=== PATIENT | female | born 1960 | race Caucasian/White ===

== ENCOUNTER 2017-06-21 03:59 | Emergency (ER) | payer BC ==
[~2017-06-21] VITALS: Ht 165.1 cm; Wt 68.0 kg
[~2017-06-21 03:59] MED LIST: ALPR0.5T99 PO; NEXI40CA PO; WAL-10TA2 PO
[2017-06-21 04:02] VITALS: BP 133/76; PULSE 79; RESP 16; TEMP 96.7; O2SAT 98
[2017-06-21] MEDS ORDERED: ALPR.5 PO (04:18)
[2017-06-21] MEDS ORDERED: NEXI40CA PO (04:18)
[2017-06-21] MEDS ORDERED: SODIUM CHLORIDE 0.9% FLUSH 10 ML FLUSH IV FLUSH PRN (04:30)
[2017-06-21] MEDS ORDERED: MORPHINE SULFATE 4 MG/ML INJ IV PUSH ONE (04:30)
[2017-06-21] MEDS ORDERED: ONDANSETRON HCL 4 MG/2 ML VIAL IVP ONE (04:30)
[2017-06-21 04:38] VITALS: O2SAT 96
--- NOTE | 2017-06-21 04:42 | PD ---
HPI . Abdominal pain Chief Complaint: Abdominal Pain Time Seen by Provider: 04:24 Travel History International Travel<30 days: No Contact w/Intl Traveler<30days: No Traveled to known affect area: No History of Present Illness HPI This patient presents with the chief complaint of abdominal pain. She describes upper abdominal pain that radiates through to her back. Onset was yesterday. It is getting gradually worse. She describes it as sharp pain which she rates 9/10. She states that it is exacerbated by movement. She states that it is not exacerbated by food. She denies any associated symptoms such as fever, diarrhea. She denies any urinary tract symptoms. PFSH Past Medical History Anxiety: Yes Cancer: No Cardiovascular Problems: No Diminished Hearing: No GERD: Yes Genitourinary: No Headaches: Yes (occasional headaches) Implanted Vascular Access Dvce: No Musculoskeletal: No Neurologic: Yes Psychiatric: Yes Reproductive: No Respiratory: No Immunizations Current: Yes Tetanus Vaccination: Unknown Influenza Vaccination: Yes ?: Not Menopausal: No : 4 Para: 3 Miscarriage: 1 : 1 Tubal Ligation: Yes Past Surgical History Cholecystectomy: Yes (2010) Other Surgery: Yes (BREAST AUGMENTATION 2007) Social History Alcohol Use: Yes (3-4 X A WEEK) Tobacco Use: No (quit 13 years ago) Substance Use: No Allergies-Medications (Allergen,Severity, Reaction): Coded Allergies: acetaminophen (Unverified Adverse Reaction, Mild, NAUSEA, 06/21/17) hydrocodone (Unverified Adverse Reaction, Mild, NAUSEA, 06/21/17) Reported Meds & Prescriptions Reported Meds & Active Scripts Active Reported Nexium (Esomeprazole DR) 40 Mg Capdr 40 Mg PO DAILY Xanax (Alprazolam) 0.5 Mg Tab 0.5 Mg PO Q8H PRN Review of Systems Except as stated in HPI: all other systems reviewed are Neg General / Constitutional: No: Fever, Chills Gastrointestinal: Positive: Abdominal Pain, No: Nausea, Vomiting, Diarrhea, Constipation Genitourinary: No: Urgency, Frequency, Dysuria Physical Exam Narrative GENERAL: Awake and alert and in no acute distress. SKIN: warm/dry. Normal color. HEAD: Normocephalic. Atraumatic. EYES: Pupils equal and round. No scleral icterus. No injection or drainage. ENT: No nasal bleeding or discharge. Mucous membranes pink and moist. NECK: Trachea midline. Full range of motion without pain.. CARDIOVASCULAR: Regular rate and rhythm. Heart sounds normal. RESPIRATORY: No accessory muscle use. Clear to auscultation. Breath sounds equal bilaterally. GASTROINTESTINAL: Abdomen soft. Epigastric tenderness. Bowel sounds present. Nondistended. MUSCULOSKELETAL: No obvious deformities. NEUROLOGICAL: Awake and alert. No obvious cranial nerve deficits. Motor grossly within normal limits. Normal speech. PSYCHIATRIC: Appropriate mood and affect; insight and judgment normal. Data Data Last Documented VS Vital Signs Date Time Temp Pulse Resp B/P (MAP) Pulse Ox O2 Delivery O2 Flow Rate FiO2 06/21/17 04:38 96 Room Air 06/21/17 04:02 96.7 79 16 Orders Orders Complete Blood Count With Diff (06/21/17 04:24) Comprehensive Metabolic Panel (06/21/17 04:24) Lipase (06/21/17 04:24) Urinalysis - C+S If Indicated (06/21/17 04:24) Iv Access Insert/Monitor (06/21/17 04:24) Ecg Monitoring (06/21/17 04:24) Oximetry (06/21/17 04:24) Morphine Inj (Morphine Inj) (06/21/17 04:30) Ondansetron Inj (Zofran Inj) (06/21/17 04:30) Sodium Chloride 0.9% Flush (Ns Flush) (06/21/17 04:30) Ed Urine Pregnancytest Poc (06/21/17 04:24) Labs Laboratory Tests Test 06/21/17 04:30 White Blood Count 7.9 TH/MM3 Red Blood Count 4.43 MIL/MM3 Hemoglobin 13.6 GM/DL Hematocrit 40.6 % Mean Corpuscular Volume 91.5 FL Mean Corpuscular Hemoglobin 30.7 PG Mean Corpuscular Hemoglobin Concent 33.5 % Red Cell Distribution Width 12.9 % Platelet Count 336 TH/MM3 Mean Platelet Volume 7.3 FL Neutrophils (%) (Auto) 53.9 % Lymphocytes (%) (Auto) 31.5 % Monocytes (%) (Auto) 8.7 % Eosinophils (%) (Auto) 5.1 % Basophils (%) (Auto) 0.8 % Neutrophils # (Auto) 4.2 TH/MM3 Lymphocytes # (Auto) 2.5 TH/MM3 Monocytes # (Auto) 0.7 TH/MM3 Eosinophils # (Auto) 0.4 TH/MM3 Basophils # (Auto) 0.1 TH/MM3 CBC Comment DIFF FINAL Differential Comment Urine Color YELLOW Urine Turbidity CLEAR Urine pH 5.5 Urine Specific [place] 1.020 Urine Protein NEG mg/dL Urine Glucose (UA) NEG mg/dL Urine Ketones NEG mg/dL Urine Occult Blood SMALL Urine Nitrite NEG Urine Bilirubin NEG Urine Urobilinogen LESS THAN 2.0 MG/DL Urine Leukocyte Esterase MOD Urine RBC 3 /hpf Urine WBC 3 /hpf Urine Squamous Epithelial Cells 1 /hpf Urine Hyaline Casts 1 /lpf Urine Mucus FEW /lpf Microscopic Urinalysis Comment CULT NOT INDICATED Blood Urea Nitrogen 19 MG/DL Creatinine 0.87 MG/DL Random Glucose 99 MG/DL Total Protein 7.9 GM/DL Albumin 4.0 GM/DL Calcium Level 8.9 MG/DL Alkaline Phosphatase 65 U/L Aspartate Amino Transf (AST/SGOT) 20 U/L Alanine Aminotransferase (ALT/SGPT) 42 U/L Total Bilirubin 0.2 MG/DL Sodium Level 141 MEQ/L Potassium Level 4.0 MEQ/L Chloride Level 107 MEQ/L Carbon Dioxide Level 28.4 MEQ/L Anion Gap 6 MEQ/L Estimat Glomerular Filtration Rate 67 ML/MIN Lipase 154 U/L MDM Medical Decision Making Medical Screen Exam Complete: Yes Emergency Medical Condition: Yes Medical Record Reviewed: Yes (she has had previous episodes of pancreatitis. She has also been seen here before with diagnosis of gastritis.) Differential Diagnosis Differential diagnosis of abdominal pain includes but is not limited to gastritis, pancreatitis, hepatitis, gastroenteritis, gallbladder disease, constipation, urinary retention, UTI, peptic ulcer disease, diverticulitis or appendicitis Narrative Course Patient presents with epigastric abdominal pain radiating through to her back. An IV be started and she'll be given IV analgesia. Routine labs and ordered. Her abdominal exam is benign. Therefore, radiographic studies have not been ordered. CBC & BMP Diagram 06/21/17 04:30 Total Protein 7.9, Albumin 4.0, Calcium Level 8.9, Alkaline Phosphatase 65, Aspartate Amino Transf (AST/SGOT) 20, Alanine Aminotransferase (ALT/SGPT) 42, Total Bilirubin 0.2 UA is negative for infection. The history, exam, diagnostic testing, and current condition do not suggest any significant pathology to warrant further testing, continued ED treatment, admission, or surgical evaluation at this point. No EMC was found. The patient 's condition is stable and appropriate for discharge. Diagnosis Primary Impression: Abdominal pain Qualified Codes: R10.13 - Epigastric pain Patient Instructions: Abdominal Pain (ED), General Instructions Med/Other Pt SpecificInfo: Prescription(s) given Scripts Dicyclomine (Bentyl) 10 Mg Cap 20 MG PO QID for Bowel Management, #20 CAP 0 Refills Prov: Radha Saucedo MD 06/21/17 Condition: Stable Radha Saucedo MD Jun 21, 2017 04:42
[2017-06-21 04:50] LABS: AUTOMATED NEUTROPHIL # 4.2 TH/MM3 (1.8-7.7); BASOPHIL # 0.1 TH/MM3 (0-0.2); BASOPHIL % 0.8 % (0.0-2.0); EOSINOPHIL # 0.4 TH/MM3 (0-0.4); EOSINOPHIL % 5.1 % (0.0-4.0); HEMATOCRIT 40.6 % (35.0-46.0); HEMO FLAGS DIFF FINAL; LYMPH % 31.5 % (9.0-44.0); LYMPHOCYTE # 2.5 TH/MM3 (1.0-4.8); MEAN CELL VOLUME 91.5 FL (80.0-100.0); MEAN CORPUSCULAR HEMOGLOBIN 30.7 PG (27.0-34.0); MEAN CORPUSCULAR HGB CONC 33.5 % (32.0-36.0); MONO % 8.7 % (0.0-8.0); NEUT % 53.9 % (16.0-70.0); PLATELET COUNT 336 TH/MM3 (150-450); RED BLOOD COUNT 4.43 MIL/MM3 (4.00-5.30); RED CELL DISTRIBUTION WIDTH 12.9 % (11.6-17.2); WHITE BLOOD COUNT 7.9 TH/MM3 (4.0-11.0)
[2017-06-21 05:01] LABS: BLOOD, URINE SMALL (NEG); COMMENT (UR) CULT NOT INDICATED; CULTURE IF INDICATED CULT NOT INDICATED; GLUCOSE,URINE NEG (NEG); HYALINE CAST, URINE 1 /lpf (RARE); KETONE, URINE NEG (NEG); MUCUS URINE FEW /lpf (OCC); NITRITE,URINE NEG (NEG); PH, URINE 5.5 (5.0-8.5); SQUAMOUS EPITHELIAL CELL URINE 1 /hpf (0-5); URINE COLOR YELLOW (YELLW/STRAW)
[2017-06-21 05:24] LABS: ALT (GPT) 42 U/L (10-53); ANION GAP 6 MEQ/L (5-15); AST (GOT) 20 U/L (15-37); BICARBONATE 28.4 MEQ/L (21.0-32.0); BLOOD UREA NITROGEN 19 MG/DL (7-18); CHLORIDE 107 MEQ/L (98-107); GLOMERULAR FILTRATION RATE 67 ML/MIN (>89); SODIUM (NA) 141 MEQ/L (136-145)
[2017-06-21 05:27] LABS: ALKALINE PHOSPHATASE 65 U/L (45-117); TOTAL BILIRUBIN ADULT 0.2 MG/DL (0.2-1.0)
[2017-06-21] MEDS ORDERED: DICY10 PO (05:30)
== END 2017-06-21 05:48 | disposition home or self-care (01) ==
LOC: NEPE 03:59
DX: R10.13 Epigastric pain (principal); K21.9 Gastro-esophageal reflux disease without esophagitis; F41.9 Anxiety disorder, unspecified
CPT/HCPCS: 80053; 81001; 83690; 84703; 85025; 96374; 96375; 99285; J2270; J2405

== ENCOUNTER 2017-08-31 08:22 | Emergency (ER) | payer BC ==
[~2017-08-31] VITALS: Ht 160 cm; Wt 69.6 kg
[~2017-08-31 08:22] MED LIST changes: +ALPR.5 PO; -ALPR0.5T99 PO; +DICY10 PO; -WAL-10TA2 PO
[2017-08-31 08:24] VITALS: BP 119/73; PULSE 90; RESP 18; TEMP 98.7; O2SAT 95
--- NOTE | 2017-08-31 09:08 | PD ---
HPI Chief Complaint: Cold / Flu Symptoms Time Seen by Provider: 08:56 Travel History International Travel<30 days: No Contact w/Intl Traveler<30days: No Traveled to known affect area: No History of Present Illness HPI Patient comes emergency department complaining of cold and flulike symptoms began 5 days ago. Patient reports dry nonproductive cough, generalized body aches, sore throat with coughing, and fever of 101.4 yesterday. Patient reports taking [id number] cold and flu medication along with Tylenol last dose was yesterday for symptomatic relief. Patient complaining of burning sensation in her lungs is worse with coughing. Denies anything making it better. Denies any nausea, vomiting, abdominal pain, chest pain, shortness of breath, or loss or change in bowel or bladder. Patient reports she was around her mother who was sick. Denies any other known sick contacts. PFSH Past Medical History Anxiety: Yes Cancer: No Cardiovascular Problems: No Diminished Hearing: No GERD: Yes Genitourinary: No Headaches: Yes (occasional headaches) Implanted Vascular Access Dvce: No Musculoskeletal: No Neurologic: Yes Psychiatric: Yes Reproductive: No Respiratory: Yes (ASTHMA) Immunizations Current: Yes ?: Not Menopausal: No : 4 Para: 3 Miscarriage: 1 : 1 Tubal Ligation: Yes Past Surgical History Cholecystectomy: Yes (2010) Other Surgery: Yes (BREAST AUGMENTATION 2007) Social History Alcohol Use: Yes (3-4 X A WEEK) Tobacco Use: No (quit 13 years ago) Substance Use: No Allergies-Medications (Allergen,Severity, Reaction): Coded Allergies: acetaminophen (Unverified Adverse Reaction, Mild, NAUSEA, 08/31/17) hydrocodone (Unverified Adverse Reaction, Mild, NAUSEA, 08/31/17) Reported Meds & Prescriptions Reported Meds & Active Scripts Active Reported Nexium (Esomeprazole DR) 40 Mg Capdr 40 Mg PO DAILY Xanax (Alprazolam) 0.5 Mg Tab 0.5 Mg PO Q8H PRN Review of Systems Except as stated in HPI: all other systems reviewed are Neg Physical Exam Narrative GENERAL: Well-developed, overweight nourished, in no acute distress, and non- ill appearing. SKIN: Focused skin assessment warm and dry. HEAD: Atraumatic. Normocephalic. EYES: Pupils equal and round. EOMI. No scleral icterus. No injection or drainage. ENT: No nasal bleeding or discharge. Mucous membranes pink and moist. Tympanic membranes pearly smith bilaterally. Posterior oropharynx mildly erythematous without exudate. Uvula is midline. No tenderness to facial sinuses to palpation. NECK: Trachea midline. No cervical lymphadenopathy. Supple. No nuclear rigidity. CARDIOVASCULAR: Regular rate and rhythm. No murmur appreciated. RESPIRATORY: No accessory muscle use. No respiratory distress. Clear to auscultation. Breath sounds equal bilaterally. Patient speaking in full sentences without difficulty. MUSCULOSKELETAL: No obvious deformities. No clubbing. No cyanosis. No edema. Full range of motion. NEUROLOGICAL: Awake and alert. No obvious cranial nerve deficits. Motor grossly within normal limits. Normal speech. PSYCHIATRIC: Appropriate mood and affect; insight and judgment normal. Data Data Last Documented VS Vital Signs Date Time Temp Pulse Resp B/P (MAP) Pulse Ox O2 Delivery O2 Flow Rate FiO2 08/31/17 08:24 98.7 90 18 119/73 (88) 95 Orders Orders Influenzae A/B Antigen (08/31/17 09:03) Group A Rapid Strep Screen (08/31/17 09:03) Chest, Single Ap (08/31/17 ) Strep Culture (Group A) (08/31/17 09:10) Ed Discharge Order (08/31/17 09:41) [facility] Medical Decision Making Medical Screen Exam Complete: Yes Emergency Medical Condition: Yes Interpretation(s) Last Impressions Chest X-Ray 08/31/17 0000 Signed Impressions: Service Date/Time: Thursday, August 31, 2017 09:06 - CONCLUSION: The lungs are clear. Taurus Santamaria MD Differential Diagnosis Influenza, strep pharyngitis, viral pharyngitis, URI, bronchitis, viral syndrome Narrative Course Patient looks great. Patients symptom complex is consistent with Influenza, or flu-like illness. The patient is tolerating fluids and is well hydrated. There is no evidence to suggest secondary infection (pneumonia, sepsis/bacteremia, etc.) at this time. I discussed with the patient, diagnosis, and plan of care and to follow up with the patients primary physician. Flu prep is positive. I discussed with the patient initiating Tamiflu and the patient is outside the therapeutic window and the patient agreed with plan. The patient was instructed to return if the worsens in anyway, especially if not tolerating fluids, increased pain or swelling, difficulty swallowing or breathing, or as needed. The patient agreed with plan. Chest X-ray was performed and negative for consolidation, pneumonia. Patient in no obvious distress upon re-evaluation. All pertinent laboratory/ Radiology result(s) discussed with patient. Any questions/concerns in reference to patient diagnosis/condition discussed and clarified prior to patient's discharge. Reinforced sheer importance of close follow up with patient's primary physician or primary care clinic. Instructed patient to return to ED immediately, if symptoms return/worsen. Patient showed understanding of above instructions. Further instructions and recommendations were detailed in discharge paperwork. Patient ambulated without difficulty out of ED at discharge. Diagnosis Primary Impression: Influenza B Referrals: [facility] Patient Instructions: General Instructions, Influenza (ED) Additional Instructions: Follow-up with your primary care physician in 3-5 days for reevaluation. Use [id number] Tylenol and ibuprofen as needed for pain and fever control. Follow instructions on the packaging. Drink plenty of non-caffeinated and nonalcoholic fluids. Return to the emergency department if symptoms get worse. Disposition: 01 DISCHARGE HOME Condition: Stable Kirit Millan Aug 31, 2017 09:08
--- NOTE | 2017-08-31 09:31 | RADRPT ---
EXAM DATE/TIME: 08/31/2017 09:06 [place] COMPARISON: No previous studies available for comparison. INDICATIONS : Flu like symptoms x 5 days. Cough, sore throat, body aches, burning in lungs just below left scapula. MEDICAL HISTORY : Gastroesophageal reflux disease. Asthma. SURGICAL HISTORY : Cholecystectomy. Tubal ligation. Breast augmentation. ENCOUNTER: Initial ACUITY: 4 - 6 days PAIN SCORE: 5/10 LOCATION: Left upper chest FINDINGS: A single view of the chest demonstrates the lungs to be symmetrically aerated without evidence of mas s, infiltrate or effusion. The cardiomediastinal contours are unremarkable. Osseous structures are intact. CONCLUSION: The lungs are clear. Taurus Santamaria MD on August 31, 2017 at 9:29 Board Certified Radiologist. This report was verified electronically.
== END 2017-08-31 10:00 | disposition home or self-care (01) ==
LOC: PHEFT 08:22
DX: J10.1 Influenza due to other identified influenza virus with other respiratory manifestations (principal); R05 Cough; M79.1 Myalgia; R50.9 Fever, unspecified; K21.9 Gastro-esophageal reflux disease without esophagitis; F41.9 Anxiety disorder, unspecified; Z86.69 Personal history of other diseases of the nervous system and sense organs; Z87.09 Personal history of other diseases of the respiratory system
CPT/HCPCS: 71045; 87081; 87804; 87880; 99284